=== PATIENT | female | born 1990 | race Hispanic/Latino ===

== ENCOUNTER 2018-10-24 12:52 | Emergency (ER) | payer OTHER ==
[2018-10-24] MEDS ORDERED: PROMETHAZINE HCL 25 MG SUPPOSITORY RC ONE (13:09)
[2018-10-24] MEDS ORDERED: MAG HYDROX/AL HYDROX/SIMETH ES 30 ML SUSP UDCUP ONE (13:09)
[2018-10-24] MEDS ORDERED: LIDOCAINE HCL 2% VISCOUS 15 ML UDCUP ONE (13:09)
== END 2018-10-24 13:57 | disposition home or self-care (01) ==
LOC: EDH 12:52
DX: R10.13 Epigastric pain (principal); R11.2 Nausea with vomiting, unspecified